=== PATIENT | female | born 1955 | race Caucasian/White ===

== ENCOUNTER 2016-03-30 10:39 | Day surgery (SDC) | payer OTHER ==
[2016-03-30 11:23] VITALS: BMI 40.6
--- NOTE | 2016-03-30 11:40 | PN ---
Progress Note (short form) - Note Progress Note: 60 yo female h/o paroxysmal atrial fibrillation s/p previous ablation x 2 and TANIKA-guided DCCV ([id number]), Hypertension/HCVD, Obesity s/p lap band surgery , cholelithiasis s/p lap cholecystectomy, Hyperlipidemia presented 02/2015 with recurrent palpitations in rapid afib. Sotalol increased, Eliquis started, presents for elective DCCV. Reports continued palpitations, compliance with NOACS, successful cardioversion to NSR after 120 J then 150 J synchronized shock. All: ASA->Hives Meds: Eliquis 5 bid, MgO 400 qd, Accupril 20 qd, Sotalol 80 tid PE-NAD VS: BP 194/103 HR 102 Lungs: Clear Heart: Irreg Abd: BS+,NT/ND Ext: No edema 12/29/2014 TANIKA: Normal LV size and fxn, mild MR, tr-mild TR, tr AR Tele: SR 60 EKG: NSR @ 65 1. Palpitations referable to paroxysmal atrial fibrillation s/p previous ablation x 2 and DCCV ([id number]) now in SR 2. Hypertension/HCVD, BP not at goal 3. Obesity s/p lap band surgery, cholelithiasis s/p lap cholecystectomy 4. Hyperlipidemia PLAN: 1. Hydralazine IV for BP control, continue Sotalol 80 q8 hrs, Accupril 20 qd, Eliquis 5 bid, Crestor 5 qd 2. D/c with f/u in office Monday04/05/2016 9:15 AM
[2016-03-30] MEDS ORDERED: hydrALAZINE HCL 20 MG/ML VIAL IVPUSH ONE (11:49)
[2016-03-30] MEDS ORDERED: PROPOFOL 20 ML ONE ×3 (12:01→12:02)
[2016-03-30 12:14] VITALS: TEMP 99
[2016-03-30] MEDS ORDERED: SILVER SULFADIAZINE 1% TOP CREAM 400 GM JAR TP SCH (12:15)
[2016-03-30 12:29] VITALS: PULSE 63
[2016-03-30 12:58] VITALS: BP 126/73
--- NOTE | 2016-03-31 16:59 | EKG ---
Test Reason : Blood Pressure : / mmHG Vent. Rate : 065 BPM Atrial Rate : 065 BPM P-R Int : 180 ms QRS Dur : 090 ms QT Int : 446 ms P-R-T Axes : 072 035 023 degrees QTc Int : 463 ms NORMAL SINUS RHYTHM WITH SINUS ARRHYTHMIA NORMAL ECG WHEN COMPARED WITH ECG OF 29-FEB-2016 09:16, SINUS RHYTHM HAS REPLACED ATRIAL FIBRILLATION VENT. RATE HAS DECREASED BY 42 BPM Confirmed by JONAS NICHOLAS, JULIETA ([id number]) on 03/31/2016 4:58:43 PM Referred By: Stevie Ryder Confirmed By:JULIETA MCDANIEL MD
== END 2016-03-30 13:25 | disposition home or self-care (01) ==
LOC: JASU-ENDO 10:39
PROVIDERS: ATTEND Internal Medicine Cardiovascular Disease
PROC: 5A2204Z Restoration of Cardiac Rhythm, Single (ICD-10-PCS; principal; 2016-03-30 11:00)
DX: I48.91 Unspecified atrial fibrillation (principal)
CPT/HCPCS: 92960; 93005; 93010

== ENCOUNTER 2017-02-05 07:27 | Emergency (ER) | payer OTHER ==
[2017-02-05 07:52] VITALS: TEMP 97.8; BMI 41.5
--- NOTE | 2017-02-05 08:10 | PDOC ---
History of Present Illness - General Chief Complaint: Palpitations Stated Complaint: RAPID HEART BEAT Time Seen by Provider: 02/05/17 08:09 - History of Present Illness Initial Comments: 02/05/17 08:10 hypertension, hypercholesterolemia, atrial fibrillation (not on Eliquis; stopped 06/2015) The patient denies chest pain, shortness of breath, headache and dizziness. Denies fever, chills, nausea, vomit, diarrhea and constipation. Denies dysuria, frequency, urgency and hematuria. 02/05/17 08:14 Past History - Past Medical History Allergies/Adverse Reactions: Allergies Allergy/AdvReac Type Severity Reaction Status Date / Time aspirin Allergy Intermediate Swelling Verified 02/05/17 07:49 Home Medications: Ambulatory Orders Quinapril HCl [Accupril -] 20 mg PO DAILY 07/01/12 Apixaban [Eliquis] 5 mg PO BID #60 tablet 02/29/16 Sotalol HCl [Betapace -] 80 mg PO TID 02/29/16 Magnesium Oxide [Magnesium] 400 mg PO DAILY 03/30/16 Anemia: No Asthma: No Cancer: No Cardiac Disorders: Yes (A FIB) CVA: No COPD: No CHF: No DVT: No Dementia: No Diabetes: No GI Disorders: No Disorders: No HTN: Yes Hypercholesterolemia: Yes Liver Disease: No Seizures: No Thyroid Disease: No - Surgical History Abdominal Surgery: Yes (LAP BAND) Appendectomy: No Cardiac Surgery: Yes (ABLATIONS x 2, CARDIOVERSION) Cholecystectomy: Yes Gastric Stapling: No GI Surgery: No Lung Surgery: No Neurologic Surgery: No Orthopedic Surgery: No - Immunization History Immunization Up to Date: Yes - Suicide/Smoking/Psychosocial Hx Smoking Status: No Smoking History: Never smoked Have you smoked in the past 12 months: No Number of Cigarettes Smoked Daily: 0 If you are a former smoker, when did you quit?: 25 YEARS AGO Information on smoking cessation initiated: No Hx Alcohol Use: No Drug/Substance Use Hx: No Substance Use Type: None Hx Substance Use Treatment: No Review of Systems - Review of Systems Comments:: 02/05/17 08:10 GENERAL/CONSTITUTIONAL: No fever or chills. No weakness. HEAD, EYES, EARS, NOSE AND THROAT: No change in vision. No ear pain or discharge. No sore throat. CARDIOVASCULAR: No chest pain or shortness of breath RESPIRATORY: No cough, wheezing, or hemoptysis. GASTROINTESTINAL: No nausea, vomiting, diarrhea or constipation. GENITOURINARY: No dysuria, frequency, or change in urination. MUSCULOSKELETAL: No joint or muscle swelling or pain. No neck or back pain. SKIN: No rash NEUROLOGIC: No headache, vertigo, loss of consciousness, or change in strength/ sensation. ENDOCRINE: No increased thirst. No abnormal weight change HEMATOLOGIC/LYMPHATIC: No anemia, easy bleeding, or history of blood clots. ALLERGIC/IMMUNOLOGIC: No hives or skin allergy. *Physical Exam - Vital Signs Last Vital Signs Temp Pulse Resp BP Pulse Ox 97.8 F 90 16 127/105 98 02/05/17 07:49 02/05/17 07:49 02/05/17 07:49 02/05/17 07:49 02/05/17 07:49 - Physical Exam Comments: 02/05/17 08:10 GENERAL: Awake, alert, and fully oriented, in no acute distress HEAD: No signs of trauma, normocephalic, atraumatic EYES: PERRLA, EOMI, sclera anicteric, conjunctiva clear ENT: Auricles normal inspection, hearing grossly normal, nares patent, oropharynx clear without exudates. Moist mucosa NECK: Normal ROM, supple, no lymphadenopathy, JVD, or masses LUNGS: No distress, speaks full sentences, clear to auscultation bilaterally HEART: Regular rate and rhythm, normal S1 and S2, no murmurs, rubs or gallops, peripheral pulses normal and equal bilaterally. ABDOMEN: Soft, nontender, normoactive bowel sounds. No guarding, no rebound. No masses EXTREMITIES: Normal inspection, Normal range of motion, no edema. No clubbing or cyanosis. NEUROLOGICAL: Cranial nerves II through XII grossly intact. Normal speech, normal gait, no focal sensorimotor deficits SKIN: Warm, Dry, normal turgor, no rashes or lesions noted. *DC/Admit/Observation/Transfer - Referrals Referrals: Bin Zaman MD [Primary Care Provider] - - Patient Instructions - Post Discharge Activity
[2017-02-05 09:10] LABS: BASOPHIL 0.9 % (0-2.0); EOSINOPHIL 2.1 % (0-4.5); MCHC 32.9 g/dl (32.0-36.0); MEAN CELL VOLUME 88.1 fl (80-96); MEAN PLT VOLUME 7.9 fl (7.5-11.1); NEUTROPHILS 63.3 % (42.8-82.8); PLATELET COUNT 306 K/MM3 (134-434); RDW 13.7 % (11.6-15.6); WHITE BLOOD COUNT 7.2 K/mm3 (4.0-10.0)
[2017-02-05 09:30] LABS: INR 1.17 (0.82-1.09); PROTHROMBIN TIME (PATIENT) 13.2 SEC (9.98-11.88)
[2017-02-05 09:33] LABS: ACTIVATED PTT 38.7 SECONDS (26.9-34.4)
[2017-02-05 09:34] LABS: ALBUMIN 3.5 g/dl (3.4-5.0); ANION GAP 7 (8-16); BILIRUBIN,TOTAL 0.3 mg/dL (0.2-1.0); CO2 26 mmol/L (21-32); CREATININE 0.7 mg/dL (0.55-1.02); GLUCOSE,RANDOM 92 mg/dL (74-106); MAGNESIUM 1.9 mg/dL (1.8-2.4); SGOT/AST 8 U/L (15-37); SGPT/ALT 16 U/L (12-78); TOT PROT 7.7 g/dl (6.4-8.2)
[2017-02-05 09:37] LABS: ALK PHOS 86 U/L (45-117); TROPONIN I < 0.02 ng/ml (0.00-0.05)
[2017-02-05 09:40] LABS: THYROID STIMULATING HORMONE 1.24 uIU/ml (0.358-3.74)
[2017-02-05 09:44] VITALS: BP 145/79; PULSE 87
[2017-02-05 09:44] LABS: URINE APPEARANCE SLCLOUDY; URINE BILIRUBIN NEGATIVE (NEGATIVE); URINE BLOOD 1+ (NEGATIVE); URINE COLOR STRAW; URINE GLUCOSE (UA) NEGATIVE (NEGATIVE); URINE KETONE NEGATIVE (NEGATIVE); URINE NITRITE NEGATIVE (NEGATIVE); URINE UROBILINOGEN NEGATIVE mg/dL (0.2-1.0)
[2017-02-05 09:48] LABS: URINE PROTEIN 1+ (NEGATIVE)
[2017-02-05 09:50] LABS: URINE BACTERIA RARE /hpf (NONE SEEN); URINE MUCUS RARE; URINE RBC 1 /hpf (0-3); URINE WBC 1 /hpf (3-5)
[2017-02-05 11:49] LABS: URINE LEUK ESTERASE Negative (NEGATIVE)
[2017-02-05 12:28] LABS: CPK 44 IU/L (26-192)
--- NOTE | 2017-02-05 12:46 | PDOC ---
History of Present Illness <Petr Stafford - Last Filed: 02/05/17 12:39> - General History Source: Patient Exam Limitations: No Limitations - History of Present Illness Initial Comments: 02/05/17 16:46 The patient is a 61 year old female, with a significant past medical history of hypertension, hypercholesterolemia, pAFon Eliquis s/p multiple cardioversions, who presents to the emergency department with intermittent palpitations that began approx. 6 days ago and lightheadedness that began this morning prior to arrival. The patient states that the palpitations are worse at night while lying down and have been interfering with her sleep. The patient reports she experienced the palpitations this morning when she walked into the ER, however, reports the palpitations have now subsided. The patient reports associated symptoms of nausea without vomiting and lightheadedness secondary to the palpitations. The patient states she has been compliant with her medications including sotolol and eliquis and reports her last benefit authorizer appointment with Dr. Ryder was approx. four months ago (next appointment scheduled for March). She denies recent chest pain or shortness of breath. She denies recent headache , blurry vision or double vision. She denies calf tenderness or swelling. She denies recent fevers or chills. She denies recent, vomit, diarrhea or constipation. She denies recent dysuria, frequency, urgency or hematuria. Allergies: Aspirin Past surgical history: Ablation x2. Cholecystectomy. Social history: Former smoker. Denies EtOH use and recreational drug use. Primary Care Physician: Dr. Bin Zaman Tandem Mill Operator: Dr. Stevie Ryder <Chava Dye - Last Filed: 02/05/17 16:46> - General Chief Complaint: Palpitations Stated Complaint: RAPID HEART BEAT Time Seen by Provider: 02/05/17 08:09 Past History - Past Medical History Anemia: No Asthma: No Cancer: No Cardiac Disorders: Yes (A FIB) CVA: No COPD: No CHF: No DVT: No Dementia: No Diabetes: No GI Disorders: No Disorders: No HTN: Yes Hypercholesterolemia: Yes Liver Disease: No Seizures: No Thyroid Disease: No - Surgical History Abdominal Surgery: Yes (LAP BAND) Appendectomy: No Cardiac Surgery: Yes (ABLATIONS x 2, CARDIOVERSION) Cholecystectomy: Yes Gastric Stapling: No GI Surgery: No Lung Surgery: No Neurologic Surgery: No Orthopedic Surgery: No - Immunization History Immunization Up to Date: Yes - Suicide/Smoking/Psychosocial Hx Smoking Status: No Smoking History: Never smoked Have you smoked in the past 12 months: No Number of Cigarettes Smoked Daily: 0 If you are a former smoker, when did you quit?: 25 YEARS AGO Information on smoking cessation initiated: No Hx Alcohol Use: No Drug/Substance Use Hx: No Substance Use Type: None Hx Substance Use Treatment: No <Petr Stafford - Last Filed: 02/05/17 12:39> <Chava Dye - Last Filed: 02/05/17 16:46> - Past Medical History Allergies/Adverse Reactions: Allergies Allergy/AdvReac Type Severity Reaction Status Date / Time aspirin Allergy Intermediate Swelling Verified 02/05/17 07:49 Home Medications: Ambulatory Orders Quinapril HCl [Accupril -] 40 mg PO DAILY 07/01/12 Apixaban [Eliquis] 5 mg PO BID #60 tablet 02/29/16 Sotalol HCl [Betapace -] 80 mg PO TID 02/29/16 Famotidine [Pepcid -] 20 mg PO DAILY 02/05/17 Review of Systems - Review of Systems Comments:: 02/05/17 16:46 GENERAL/CONSTITUTIONAL: No fever or chills. No weakness. HEAD, EYES, EARS, NOSE AND THROAT: No change in vision. No ear pain or discharge. No sore throat. CARDIOVASCULAR: +Palpitations. +Lightheadedness. No chest pain or shortness of breath. RESPIRATORY: No cough, wheezing, or hemoptysis. GASTROINTESTINAL: +Nausea. No vomiting, diarrhea or constipation. GENITOURINARY: No dysuria, frequency, or change in urination. MUSCULOSKELETAL: No joint or muscle swelling or pain. No neck or back pain. SKIN: No rash NEUROLOGIC:No headache, vertigo, loss of consciousness, or change in strength/ sensation. ENDOCRINE: No increased thirst. No abnormal weight change. HEMATOLOGIC/LYMPHATIC: No anemia, easy bleeding, or history of blood clots. ALLERGIC/IMMUNOLOGIC: No hives or skin allergy. <Chava Dye - Last Filed: 02/05/17 16:46> *Physical Exam - Vital Signs Last Vital Signs Temp Pulse Resp BP Pulse Ox 97.8 F 87 12 145/79 98 02/05/17 07:49 02/05/17 09:43 02/05/17 09:43 02/05/17 09:43 02/05/17 07:49 <Petr Stafford - Last Filed: 02/05/17 12:39> - Vital Signs Last Vital Signs Temp Pulse Resp BP Pulse Ox 97.8 F 87 12 145/79 98 02/05/17 07:49 02/05/17 09:43 02/05/17 09:43 02/05/17 09:43 02/05/17 07:49 - Physical Exam Comments: 02/05/17 16:46 GENERAL: Awake, alert, and fully oriented, in no acute distress HEAD: No signs of trauma EYES: PERRLA, EOMI, sclera anicteric, conjunctiva clear ENT: Auricles normal inspection, hearing grossly normal, nares patent, oropharynx clear without exudates. Moist mucosa NECK: Normal ROM, supple, no lymphadenopathy, JVD, or masses LUNGS: Breath sounds equal, clear to auscultation bilaterally. No wheezes, and no crackles HEART: +Irregularly irregular. Normal S1 and S2, no murmurs, rubs or gallops ABDOMEN: Soft, nontender, normoactive bowel sounds. No guarding, no rebound. No masses EXTREMITIES: Normal range of motion, no edema. No clubbing or cyanosis. No cords, erythema, or tenderness NEUROLOGICAL: Normal speech, cranial nerves intact, negative pronator drift, 5/ 5 strength in all 4 extremities, normal sensation to light touch in all 4 extremities, normal cerebellar exam, normal gait, normal reflexes and tone SKIN: Warm, Dry, normal turgor, no rashes or lesions noted. <Chava Dye - Last Filed: 02/05/17 16:46> Heart Score/ECG Review #1 02/05/17 12:40 Twelve-lead EKG was performed and reviewed by me. Atrial flutter, rate 100. Normal axis. No ST elevations. <Petr Stafford - Last Filed: 02/05/17 12:39> ED Treatment Course - LABORATORY CBC & Chemistry Diagram: 02/05/17 08:51 02/05/17 08:51 - ADDITIONAL ORDERS Additional order review: Laboratory Results 02/05/17 02/05/17 02/05/17 09:00 08:51 08:51 PT with INR 13.20 H INR 1.17 H PTT (Actin FS) 38.7 H Sodium Potassium Chloride Carbon Dioxide Anion Gap BUN Creatinine Creat Clearance w eGFR Random Glucose Calcium Magnesium Total Bilirubin AST ALT Alkaline Phosphatase Creatine Kinase Troponin I B-Natriuretic Peptide 1368.43 H Total Protein Albumin TSH 1.24 D Urine Color Straw Urine Appearance Slcloudy Urine pH 5.0 Ur Specific [place] 1.009 Urine Protein 1+ H Urine Glucose (UA) Negative Urine Ketones Negative Urine Blood 1+ H Urine Nitrite Negative Urine Bilirubin Negative Urine Urobilinogen Negative Ur Leukocyte Esterase Negative Urine WBC (Auto) 1 Urine RBC (Auto) 1 Ur Epithelial Cells Rare Urine Bacteria Rare Urine Mucus Rare 02/05/17 08:51 PT with INR INR PTT (Actin FS) Sodium 139 Potassium 4.1 Chloride 106 Carbon Dioxide 26 Anion Gap 7 L BUN 8 Creatinine 0.7 Creat Clearance w eGFR > 60 Random Glucose 92 Calcium 10.0 Magnesium 1.9 Total Bilirubin 0.3 AST 8 L D ALT 16 Alkaline Phosphatase 86 Creatine Kinase 44 Troponin I < 0.02 B-Natriuretic Peptide Total Protein 7.7 Albumin 3.5 TSH Urine Color Urine Appearance Urine pH Ur Specific [place] Urine Protein Urine Glucose (UA) Urine Ketones Urine Blood Urine Nitrite Urine Bilirubin Urine Urobilinogen Ur Leukocyte Esterase Urine WBC (Auto) Urine RBC (Auto) Ur Epithelial Cells Urine Bacteria Urine Mucus 02/05/17 08:51 RBC 4.92 MCV 88.1 MCHC 32.9 RDW 13.7 MPV 7.9 Neutrophils % 63.3 Lymphocytes % 27.1 D Monocytes % 6.6 Eosinophils % 2.1 Basophils % 0.9 - RADIOLOGY Radiology Studies Ordered: Category Date Time Status CHEST PA & LAT [RAD] Stat Radiology 02/05/17 08:39 Completed <Petr Stafford - Last Filed: 02/05/17 12:39> - LABORATORY CBC & Chemistry Diagram: 02/05/17 08:51 02/05/17 08:51 - ADDITIONAL ORDERS Additional order review: Laboratory Results 02/05/17 02/05/17 02/05/17 09:00 08:51 08:51 PT with INR 13.20 H INR 1.17 H PTT (Actin FS) 38.7 H Sodium Potassium Chloride Carbon Dioxide Anion Gap BUN Creatinine Creat Clearance w eGFR Random Glucose Calcium Magnesium Total Bilirubin AST ALT Alkaline Phosphatase Creatine Kinase Troponin I B-Natriuretic Peptide 1368.43 H Total Protein Albumin TSH 1.24 D Urine Color Straw Urine Appearance Slcloudy Urine pH 5.0 Ur Specific [place] 1.009 Urine Protein 1+ H Urine Glucose (UA) Negative Urine Ketones Negative Urine Blood 1+ H Urine Nitrite Negative Urine Bilirubin Negative Urine Urobilinogen Negative Ur Leukocyte Esterase Negative Urine WBC (Auto) 1 Urine RBC (Auto) 1 Ur Epithelial Cells Rare Urine Bacteria Rare Urine Mucus Rare 02/05/17 08:51 PT with INR INR PTT (Actin FS) Sodium 139 Potassium 4.1 Chloride 106 Carbon Dioxide 26 Anion Gap 7 L BUN 8 Creatinine 0.7 Creat Clearance w eGFR > 60 Random Glucose 92 Calcium 10.0 Magnesium 1.9 Total Bilirubin 0.3 AST 8 L D ALT 16 Alkaline Phosphatase 86 Creatine Kinase 44 Troponin I < 0.02 B-Natriuretic Peptide Total Protein 7.7 Albumin 3.5 TSH Urine Color Urine Appearance Urine pH Ur Specific [place] Urine Protein Urine Glucose (UA) Urine Ketones Urine Blood Urine Nitrite Urine Bilirubin Urine Urobilinogen Ur Leukocyte Esterase Urine WBC (Auto) Urine RBC (Auto) Ur Epithelial Cells Urine Bacteria Urine Mucus 02/05/17 08:51 RBC 4.92 MCV 88.1 MCHC 32.9 RDW 13.7 MPV 7.9 Neutrophils % 63.3 Lymphocytes % 27.1 D Monocytes % 6.6 Eosinophils % 2.1 Basophils % 0.9 <Chava Dye - Last Filed: 02/05/17 16:46> Medical Decision Making - Medical Decision Making 02/05/17 10:40 61 year old female with a significant past medical history of hypertension, hypercholesterolemia, atrial fibrillation on Eliquis presents with palpitations and an initial heart rate of 107. EKG with atrial flutter. Vitals otherwise unremarkable. On my exam the patient is irregularly irregular with a heart rate of 88, she is currently asymptomatic. Will obtain labs including troponin and BNP and check a chest x-ray to see if she is in decompensated heart failure due to flutter. Will discuss with the patient's benefit authorizer Dr. Ryder/Jacy and PMD Dr. Zaman Labs remarkable for BNP of 1400. Otherwise labs within normal limits. Chest x- ray is clear with no sign of pulmonary edema. The patient has remained asymptomatic since presentation. Dr. Louie has evaluated the patient in the emergency department and recommends that we discharge her as he will schedule her for cardioversion as an outpatient. Given the patient's intermittent lightheadedness and shortness of breath I also discussed the case with Dr. Zaman. Dr. Zaman came down to the emergency department and we evaluated the patient together. We offered the patient overnight observation given the majority of her symptoms are night however she declines and prefers to follow- up with Dr. Ryder is an outpatient. I gave the patient strict return precautions , if her shortness of breath or lightheadedness were to reoccur or if she felt her heart rate was too high, greater than 100, that she should return to the emergency department immediately. I discussed the physical exam findings, ancillary test results and final diagnoses with the patient. I answered all of the patient's questions. The patient was satisfied with the care received and felt comfortable with the discharge plan and treatment plan. The patient will call their primary care physician within 24 hours to arrange follow-up and will return to the Emergency Department with any new, persistent or worsening symptoms. <Petr Stafford - Last Filed: 02/05/17 12:39> - Medical Decision Making 02/05/17 16:[address] Artur Louie at 10:52 am. Page returned immediately. <Chava Dye - Last Filed: 02/05/17 16:46> *DC/Admit/Observation/Transfer - Discharge Dispostion Admit: No - Attestations Physician Attestion: 02/05/17 12:46 I, Dr. Petr Stafford MD, attest that this document has been prepared under my direction and personally reviewed by me in its entirety. I further attest, that it accurately reflects all work, treatment, procedures and medical decision -making performed by me. <Petr Stafford - Last Filed: 02/05/17 12:39> - Attestations Scribe Attestion: 02/05/17 16:06 Documentation prepared by Chava Dye, acting as medical aide for Petr Stafford MD. <Chava Dye - Last Filed: 02/05/17 16:46> Diagnosis at time of Disposition: Palpitations, Atrial fibrillation - Discharge Dispostion Disposition: HOME Condition at time of disposition: Stable - Referrals Referrals: Bin Zaman MD [Primary Care Provider] - - Patient Instructions Printed Discharge Instructions: DI for Palpitations Additional Instructions: Call Dr. Ryder tomorrow to schedule your cardioversion. Follow-up with Dr. Zaman within 2-3 days. Return to the emergency department if you have any new , worsening or concerning symptoms. Continue to take all your medications as prescribed. - Post Discharge Activity
--- NOTE | 2017-02-06 14:21 | EKG ---
Test Reason : Blood Pressure : / mmHG Vent. Rate : 100 BPM Atrial Rate : 271 BPM P-R Int : 000 ms QRS Dur : 092 ms QT Int : 346 ms P-R-T Axes : 000 042 008 degrees QTc Int : 446 ms ATRIAL FLUTTER WITH VARIABLE A-V BLOCK NONSPECIFIC ST AND T WAVE ABNORMALITY ABNORMAL ECG WHEN COMPARED WITH ECG OF 30-MAR-2016 12:03, ATRIAL FLUTTER HAS REPLACED SINUS RHYTHM VENT. RATE HAS INCREASED BY 35 BPM Confirmed by LIZETH BRADY MD ([id number]) on 02/06/2017 2:21:27 PM Referred By: Confirmed By:LIZETH BRADY MD
== END 2017-02-05 12:58 | disposition home or self-care (01) ==
LOC: JER 07:27
DX: I48.0 Paroxysmal atrial fibrillation (principal); Z79.01 Long term (current) use of anticoagulants; I10 Essential (primary) hypertension; E78.00 Pure hypercholesterolemia, unspecified
CPT/HCPCS: 36415; 71020-TC; 80053; 81003; 81015; 82550; 83735; 83880; 84443; 84484; 85025; 85610; 85730; 93005; 93010; 99284-25

== ENCOUNTER 2017-02-13 09:44 | Day surgery (SDC) | payer OTHER ==
[2017-02-13 11:15] VITALS: BMI 41.5
[2017-02-13 12:16] VITALS: TEMP 98.2
--- NOTE | 2017-02-13 12:40 | EKG ---
Test Reason : Blood Pressure : / mmHG Vent. Rate : 056 BPM Atrial Rate : 056 BPM P-R Int : 172 ms QRS Dur : 088 ms QT Int : 468 ms P-R-T Axes : 073 035 038 degrees QTc Int : 451 ms SINUS BRADYCARDIA WITH SINUS ARRHYTHMIA OTHERWISE NORMAL ECG WHEN COMPARED WITH ECG OF 05-FEB-2017 07:41, SINUS RHYTHM HAS REPLACED ATRIAL FLUTTER VENT. RATE HAS DECREASED BY 44 BPM Confirmed by CAITLYN NICHOLAS, LIZETH ([id number]) on 02/13/2017 12:40:02 PM Referred By: Stevie Ryder Confirmed By:LIZETH BRADY MD
[2017-02-13 12:44] VITALS: BP 122/70; PULSE 63
== END 2017-02-13 14:14 | disposition home or self-care (01) ==
LOC: JASU-ENDO 09:44 → JOR 09:44 → JASU-ENDO 14:14
PROVIDERS: ATTEND Internal Medicine Cardiovascular Disease
PROC: 5A2204Z Restoration of Cardiac Rhythm, Single (ICD-10-PCS; principal; 2017-02-13 10:30)
DX: I48.91 Unspecified atrial fibrillation (principal)
CPT/HCPCS: 92960; 93005; 93010

== ENCOUNTER 2018-12-04 12:50 | Emergency (ER) | payer OTHER ==
[2018-12-04 13:02] VITALS: BMI 41.6
[2018-12-04] MEDS ORDERED: ACETAMINOPHEN 1000 MG/100 ML VIAL (NON FORMULARY) IVPB ONE (13:58)
[2018-12-04] MEDS ORDERED: SODIUM CHLORIDE 1,000 ML IV STA (13:58)
[2018-12-04 14:32] LABS: BASO % 0.5 % (0-2.0); EOS % 0.6 % (0-4.5); HEMATOCRIT 41.9 % (32.4-45.2); HEMOGLOBIN 13.5 GM/dL (10.7-15.3); LYMPH % 15.4 % (8-40); MCH 28.4 pg (25.7-33.7); MCHC 32.3 g/dl (32.0-36.0); MEAN CELL VOLUME 87.9 fl (80-96); MEAN PLT VOLUME 7.5 fl (7.5-11.1); MONO % 6.5 % (3.8-10.2); PLATELET COUNT 360 K/MM3 (134-434); RBC 4.76 M/mm3 (3.60-5.2); RDW 14.5 % (11.6-15.6); WHITE BLOOD COUNT 11.4 K/mm3 (4.0-10.0)
[2018-12-04] MEDS ORDERED: ACETAMINOPHEN INJECTION 100 ML IVPB ONE (14:35)
--- NOTE | 2018-12-04 14:39 | PDOC ---
History of Present Illness - General Chief Complaint: Hematuria Stated Complaint: HEMATURIA Time Seen by Provider: 12/04/18 13:11 History Source: Patient Exam Limitations: No Limitations Past History - Travel Traveled outside of the country in the last 30 days: No Close contact w/someone who was outside of country & ill: No - Past Medical History Allergies/Adverse Reactions: Allergies Allergy/AdvReac Type Severity Reaction Status Date / Time aspirin Allergy Intermediate Swelling Verified 12/04/18 12:56 Home Medications: Ambulatory Orders Quinapril HCl [Accupril -] 40 mg PO DAILY 07/01/12 Apixaban [Eliquis] 5 mg PO BID #60 tablet 02/29/16 Sotalol HCl [Betapace -] 80 mg PO TID 02/29/16 Famotidine [Pepcid -] 20 mg PO BID 02/05/17 Cholecalciferol (Vitamin D3) [Vitamin D3 -] 2,000 unit PO DAILY 12/04/18 Sulfamethoxazole/Trimethoprim [Bactrim Ds -] 1 tab PO BID #14 tablet 12/04/18 Anemia: No Asthma: No Cancer: No Cardiac Disorders: Yes (A FIB) CVA: No COPD: No CHF: No DVT: No Dementia: No Diabetes: No GI Disorders: No Disorders: No HTN: Yes Hypercholesterolemia: Yes Liver Disease: No Seizures: No Thyroid Disease: No - Surgical History Abdominal Surgery: Yes (LAP BAND) Appendectomy: No Cardiac Surgery: Yes (ABLATIONS x 2, CARDIOVERSION) Cholecystectomy: Yes Gastric Stapling: No GI Surgery: No Lung Surgery: No Neurologic Surgery: No Orthopedic Surgery: No - Immunization History Immunization Up to Date: Yes - Suicide/Smoking/Psychosocial Hx Smoking Status: No Smoking History: Unknown if ever smoked Have you smoked in the past 12 months: No Number of Cigarettes Smoked Daily: 0 If you are a former smoker, when did you quit?: 25 YEARS AGO Hx Alcohol Use: No Drug/Substance Use Hx: No Substance Use Type: None Hx Substance Use Treatment: No Review of Systems - Review of Systems Able to Perform ROS?: Yes Comments:: 12/04/18 14:34 CONSTITUTIONAL: Absent: fever, chills, diaphoresis, generalized weakness, malaise, loss of appetite HEENT: Absent: rhinorrhea, nasal congestion, throat pain, throat swelling, difficulty swallowing, mouth swelling, ear pain, eye pain, visual Changes CARDIOVASCULAR: Absent: chest pain, loss of consciousness, palpitations, irregular heart rate, peripheral edema RESPIRATORY: Absent: cough, shortness of breath, dyspnea with exertion, orthopnea, wheezing, stridor, hemoptysis GASTROINTESTINAL: Absent: abdominal pain, abdominal distension, nausea, vomiting, diarrhea, constipation, melena, hematochezia GENITOURINARY: Present: hematuria, R flank pain, dysuria Absent: frequency, urgency, hesitancy , genital pain MUSCULOSKELETAL: Absent: myalgia, arthralgia, joint swelling SKIN: Absent: rash, itching, pallor HEMATOLOGIC/IMMUNOLOGIC: Absent: easy bleeding, easy bruising, lymphadenopathy, frequent infections ENDOCRINE: Absent: unexplained weight gain, unexplained weight loss, heat intolerance, cold intolerance NEUROLOGIC: Absent: headache, focal weakness or paresthesias, dizziness, unsteady gait, seizure, mental status changes, bladder or bowel incontinence PSYCHIATRIC: Absent: anxiety, depression, suicidal or homicidal ideation, hallucinations. Is the patient limited Maori proficient: No *Physical Exam - Vital Signs Last Vital Signs Temp Pulse Resp BP Pulse Ox 98.1 F 73 18 149/85 99 12/04/18 13:00 12/04/18 13:00 12/04/18 13:00 12/04/18 13:00 12/04/18 13:00 - Physical Exam Comments: 12/04/18 14:35 GENERAL: Well developed, well nourished. Awake and alert. No acute distress. HEENT: Normocephalic, atraumatic. PERRLA, EOMI. No conjunctival pallor. Sclera are non- icteric. Moist mucous membranes. Oropharynx is clear. NECK: Supple. Full ROM. No JVD. Carotid pulses 2+ and symmetric, without bruits. No thyromegaly. No lymphadenopathy. CARDIOVASCULAR: Regular rate and rhythm. No murmurs, rubs, or gallops. Distal pulses are 2+ and symmetric. PULMONARY: No evidence of respiratory distress. Lungs clear to auscultation bilaterally. No wheezing, rales or rhonchi. ABDOMINAL: Soft. Non-tender. Non-distended. No rebound or guarding. No organomegaly. Normoactive bowel sounds. MUSCULOSKELETAL Normal range of motion at all joints. No bony deformities or tenderness. (+) R CVA tenderness. EXTREMITIES: No cyanosis. No clubbing. No edema. No calf tenderness. SKIN: Warm and dry. Normal capillary refill. No rashes. No jaundice. NEUROLOGICAL: Alert, awake, appropriate. Cranial nerves 2-12 intact. No deficits to light touch and temperature in face, upper extremities and lower extremities. No motor deficits in the in face, upper extremities and lower extremities. Normoreflexic in the upper and lower extremities. Normal speech. Toes are down- going bilaterally. Gait is normal without ataxia. PSYCHIATRIC: Cooperative. Good eye contact. Appropriate mood and affect. ED Treatment Course - LABORATORY CBC & Chemistry Diagram: 12/04/18 14:00 12/04/18 14:00 - RADIOLOGY Radiology Studies Ordered: Category Date Time Status SPIRAL- RENAL-STONE CT [CT] Stat CT Scan 12/04/18 13:57 Ordered Medical Decision Making - Medical Decision Making 12/04/18 14:35 The patient is a 63 y/o F with PMH of Afib (on eliquis), HTN, presents to the ER today for 3 days of hematuria and back pain starting yesterday. The patient states she has been recently taking antibiotics for a tooth infection (augmentin , then clindamycin). She notes she stopped the Clindamycin about three days ago and then the hematuria started. She also admits to associated dysuria. She is having full voids. Her last bowel movement was this mornoing. Denies fever, chills, n/v/d, abdominal pain, and shortness of breath. She states she has an appointment with urology (Dr. Devine) on . A/P: Hematuria On exam pt with R CVA tenderness Urine appears pink DDx: UTI, cystitis, pyelo, nephrolithaisis, abx side effect? Labs, Urine, spiral CT ordered Re-evaluate 12/04/18 17:11 Urine shows 2+ leukocytes, 3+ blood; likely UTI CT Impression per radiology: No nephrolithasis; inflammatory changes of central mesentery and a degree of diverticulitis must be considered Clinically; pt with no abdominal pain on exam, a diagnosis of diverticulitis is not consistent with pt symptoms Will treat as early UTI/Pyelo; pt with follow up on DC home with strict return precautions I discussed the physical exam findings, ancillary test results and final diagnoses with the patient. I answered all of the patient's questions. The patient was satisfied with the care received and felt comfortable with the discharge plan and treatment plan. The Patient agrees to follow up with the primary care physician/specialist within 24-72 hours. Return precautions were given. *DC/Admit/Observation/Transfer Diagnosis at time of Disposition: Cystitis - Discharge Dispostion Disposition: HOME Condition at time of disposition: Stable Decision to Admit order: No - Referrals Referrals: Bin Zaman MD [Primary Care Provider] - Michele Devine MD., [Staff Physician] - - Patient Instructions Printed Discharge Instructions: DI for Acute Cystitis Additional Instructions: You were evaluated for the blood in your urine today Your urine test shows an infection. Take the antibiotics as prescribed and keep your appointment with urology for Take the pyridum with food as needed for pain with urination Drink plenty of fluids Return to the ER for abdominal pain, vomiting, changes in your bowel movements, fever or if you have any changes in your symptoms - Post Discharge Activity Forms/Work/School Notes: Back to Work
[2018-12-04 14:46] LABS: INR 1.24 (0.83-1.09); PROTHROMBIN TIME (PATIENT) 14.7 SEC (9.7-13.0)
[2018-12-04 14:50] LABS: ALBUMIN 3.8 g/dl (3.4-5.0); BILIRUBIN,TOTAL 0.3 mg/dL (0.2-1); BLOOD UREA NITROGEN 10.5 mg/dL (7-18); CALCIUM 10.6 mg/dL (8.5-10.1); CREATININE 0.6 mg/dL (0.55-1.3); POTASSIUM 4.3 mmol/L (3.5-5.1); TOT PROT 8.2 g/dl (6.4-8.2)
--- NOTE | 2018-12-04 16:15 | PDOC ---
*Physical Exam - Vital Signs Last Vital Signs Temp Pulse Resp BP Pulse Ox 98.1 F 73 18 149/85 99 12/04/18 13:00 12/04/18 13:00 12/04/18 13:00 12/04/18 13:00 12/04/18 13:00 ED Treatment Course - LABORATORY CBC & Chemistry Diagram: 12/04/18 14:00 12/04/18 14:00 - ADDITIONAL ORDERS Additional order review: Laboratory Results 12/04/18 12/04/18 14:00 14:00 PT with INR 14.70 H INR 1.24 H Sodium 139 Potassium 4.3 Chloride 100 Carbon Dioxide 31 Anion Gap 8 BUN 10.5 Creatinine 0.6 Est GFR (CKD-EPI)AfAm 110.86 Est GFR (CKD-EPI)NonAf 95.65 Random Glucose 90 Calcium 10.6 H Total Bilirubin 0.3 AST 13 L ALT 16 Alkaline Phosphatase 81 Total Protein 8.2 Albumin 3.8 12/04/18 14:00 RBC 4.76 MCV 87.9 MCHC 32.3 RDW 14.5 MPV 7.5 Neutrophils % 77.0 D Lymphocytes % 15.4 D Monocytes % 6.5 Eosinophils % 0.6 Basophils % 0.5 - Medications Given in the ED: ED Medications Discontinued Medications Generic Name Dose Route Start Last Admin Trade Name Freq PRN Reason Stop Dose Admin Acetaminophen 1,000 mg 12/04/18 13:58 12/04/18 14:50 Ofirmev Injection - IVPB 12/04/18 13:59 1,000 mg ONCE ONE Administration Sodium Chloride 1,000 mls @ 1,000 mls/hr 12/04/18 13:58 12/04/18 14:30 Normal Saline - IV 12/04/18 14:57 1,000 mls/hr ASDIR STA Administration Medical Decision Making - Medical Decision Making 12/04/18 16:13 Patient seen and evaluated with the nurse practitioner. I agree with the overall evaluation, assessment, and management with the following summary of visit: 63y/o F h/o afib on eliquis p/w dysuria and back pain and hematuria. discomfort on exam with otherwise benign abdomen, +cvat presentation could be c/w renal colic, cystitis/pyelo, hematuria 2/2 a/c labs, ua ctap reassess *DC/Admit/Observation/Transfer Diagnosis at time of Disposition: Cystitis - Discharge Dispostion Disposition: HOME Condition at time of disposition: Stable - Prescriptions Prescriptions: Phenazopyridine HCl [Pyridium -] 100 mg PO TID #6 tablet Sulfamethoxazole/Trimethoprim [Bactrim Ds -] 1 tab PO BID #14 tablet - Referrals Referrals: Bin Zaman MD [Primary Care Provider] - Michele Devine MD., MD [Staff Physician] - - Patient Instructions Printed Discharge Instructions: DI for Acute Cystitis Additional Instructions: You were evaluated for the blood in your urine today Your urine test shows an infection. Take the antibiotics as prescribed and keep your appointment with urology for Take the pyridum with food as needed for pain with urination Drink plenty of fluids Return to the ER for abdominal pain, vomiting, changes in your bowel movements, fever or if you have any changes in your symptoms - Post Discharge Activity Forms/Work/School Notes: Back to Work Discharge - Discharge Information Problems reviewed: Yes Clinical Impression/Diagnosis: Cystitis Condition: Stable Disposition: HOME - Additional Discharge Information Prescriptions: Phenazopyridine HCl [Pyridium -] 100 mg PO TID #6 tablet Sulfamethoxazole/Trimethoprim [Bactrim Ds -] 1 tab PO BID #14 tablet - Follow up/Referral Referrals: Bin Zaman MD [Primary Care Provider] - Michele Devine MD., [Staff Physician] - - Patient Discharge Instructions Patient Printed Discharge Instructions: DI for Acute Cystitis Additional Instructions: You were evaluated for the blood in your urine today Your urine test shows an infection. Take the antibiotics as prescribed and keep your appointment with urology for Take the pyridum with food as needed for pain with urination Drink plenty of fluids Return to the ER for abdominal pain, vomiting, changes in your bowel movements, fever or if you have any changes in your symptoms - Post Discharge Activity Work/Back to School Note: Back to Work
[2018-12-04 16:51] LABS: PH,URINE 6.5 (5.0-8.0); URINE APPEARANCE Slightly Cloudy; URINE BILIRUBIN Negative (NEGATIVE); URINE COLOR Light yellow; URINE GLUCOSE (UA) Negative (NEGATIVE); URINE KETONE Negative (NEGATIVE); URINE LEUK ESTERASE 2+ (NEGATIVE); URINE NITRITE Negative (NEGATIVE); URINE PROTEIN 2+ (NEGATIVE); URINE UROBILINOGEN 0.2 mg/dL (0.2-1.0)
[2018-12-04 17:49] VITALS: BP 155/66; PULSE 66; TEMP 97.8
[2018-12-04 18:25] LABS: EPI CELLS 1 /HPF (0-5/HPF); HYALINE CASTS 3 /lpf (0-8); URINE BACTERIA FEW /hpf (NEGATIVE); URINE RBC 5 /hpf (0-4); URINE WBC 50-60 /hpf (0-5)
[2018-12-04 18:26] LABS: URINE CRYSTALS NONE SEEN /hpf
== END 2018-12-04 17:45 | disposition home or self-care (01) ==
LOC: SUPCPDRO 12:50 → JER 12:50
PROC: 3E0337Z Introduction of Electrolytic and Water Balance Substance into Peripheral Vein, Percutaneous Approach (ICD-10-PCS; principal; 2018-12-04)
PROC: 3E033NZ Introduction of Analgesics, Hypnotics, Sedatives into Peripheral Vein, Percutaneous Approach (ICD-10-PCS; 2018-12-04)
DX: N30.00 Acute cystitis without hematuria (principal); I10 Essential (primary) hypertension; I48.91 Unspecified atrial fibrillation; Z79.01 Long term (current) use of anticoagulants; E78.00 Pure hypercholesterolemia, unspecified; Z88.6 Allergy status to analgesic agent
CPT/HCPCS: 36415; 74176-TC; 80053; 81003; 85025; 85610; 87086; 99283-25; J0131; J7030

== ENCOUNTER 2022-03-21 04:50 | Day surgery (SDC) | payer OTHER ==
[2022-03-17 16:16] VITALS: BMI 41.1
[2022-03-21 14:31] VITALS: TEMP 97.9
[2022-03-21 15:47] VITALS: BP 134/84; PULSE 65; RESP 18
== END 2022-03-21 15:53 | disposition home or self-care (01) ==
LOC: JASU-ENDO 04:50
PROVIDERS: ATTEND Internal Medicine Cardiovascular Disease
PROC: 5A2204Z Restoration of Cardiac Rhythm, Single (ICD-10-PCS; principal; 2022-03-21 12:00)
DX: I48.91 Unspecified atrial fibrillation (principal)
CPT/HCPCS: 92960; 93005; 93010

== ENCOUNTER 2022-03-30 16:36 | Inpatient (IN) | payer OTHER ==
[2022-03-30 17:46] VITALS: BMI 38.9
[2022-03-30] MEDS ORDERED: FAMOTIDINE 20 MG/50 ML IVPB 20 MG/50 ML MG IVPB ONE (20:28)
[2022-03-30] MEDS ORDERED: morphine CARPU-JECT 2 MG/1 ML DISP.SYRIN IVPUSH ONE (20:29)
[2022-03-30 20:41] LABS: BASO % 0.6 % (0-2.0); EOS % 1.3 % (0-4.5); LYMPH % 21.5 % (8-40); MCHC 32.5 g/dl (32.0-36.0); MEAN CELL VOLUME 86.1 fl (80-96); MEAN PLT VOLUME 6.9 fl (7.5-11.1); MONO % 9.5 % (3.8-10.2); NEUT % 67.1 % (42.8-82.8); PLATELET COUNT 348 10^3/uL (134-434); RBC 5.34 M/mm3 (3.60-5.2); WHITE BLOOD COUNT 8.9 K/mm3 (4.0-10.0)
[2022-03-30] MEDS ORDERED: SODIUM CHLORIDE 0.9% 500 ML INFUS.BAG IV ONE (20:59)
[2022-03-30] MEDS ORDERED: ONDANSETRON 4 MG/2 ML VIAL IVPUSH ONE (21:06)
[2022-03-30 21:08] LABS: CHLORIDE 103 mmol/L (98-107); SODIUM 141 mmol/L (136-145)
[2022-03-30 21:11] LABS: ANION GAP 9 MMOL/L (8-16); BLOOD UREA NITROGEN 12.3 mg/dL (7-18); CO2 29 mmol/L (21-32); GLUCOSE,RANDOM 95 mg/dL (74-106); LIPASE 93 U/L (73-393)
[2022-03-30 21:14] LABS: CREATININE 0.8 mg/dL (0.55-1.3); SGOT/AST 17 U/L (15-37); SGPT/ALT 16 U/L (13-61)
[2022-03-30 21:15] LABS: BILIRUBIN,TOTAL 0.6 mg/dL (0.2-1); TOT PROT 8.4 g/dl (6.4-8.2)
[2022-03-30 21:17] LABS: ALK PHOS 82 U/L (45-117)
[2022-03-31] MEDS ORDERED: SODIUM CHLORIDE 1,000 ML IV SCH ×2 (00:45→16:45)
[2022-03-31 01:31] LABS: EPI CELLS 3 /uL (0-25.1); HYALINE CASTS 1 /uL (0-3.1); URINE APPEARANCE CLEAR; URINE BACTERIA 11 /uL (0-1359); URINE BILIRUBIN NEGATIVE (NEGATIVE); URINE COLOR YELLOW; URINE GLUCOSE (UA) NEGATIVE (NEGATIVE); URINE KETONE NEGATIVE (NEGATIVE); URINE LEUK ESTERASE NEGATIVE (NEGATIVE); URINE NITRITE NEGATIVE (NEGATIVE); URINE PROTEIN TRACE (NEGATIVE); URINE RBC 38 /uL (0-23.9); URINE UROBILINOGEN 0.2 mg/dL (0.2-1.0); URINE WBC 3 /uL (0-25.8)
[2022-03-31] MEDS: SOTALOL HCL 80 MG TABLET (FP) PO SCH ×2 (07:59→22:19)
[2022-03-31 08:53] LABS: CHLORIDE 103 mmol/L (98-107); SODIUM 140 mmol/L (136-145)
[2022-03-31 08:56] LABS: ANION GAP 7 MMOL/L (8-16); BLOOD UREA NITROGEN 11.2 mg/dL (7-18); CALCIUM 9.8 mg/dL (8.5-10.1); CO2 30 mmol/L (21-32); GLUCOSE,RANDOM 87 mg/dL (74-106)
[2022-03-31 09:00] LABS: CREATININE 0.7 mg/dL (0.55-1.3)
[2022-03-31] MEDS: METOCLOPRAMIDE HCL INJECTION 10 MG/2 ML VIAL IVPUSH PRN ×2 (09:55→22:23)
[2022-03-31] MEDS ORDERED: METOCLOPRAMIDE HCL INJECTION 10 MG/2 ML VIAL ONE (09:57)
[2022-03-31] MEDS ORDERED: LISINOPRIL 5 MG TABLET PO SCH (10:00)
[2022-03-31] MEDS: APIXABAN 5 MG TABLET PO SCH ×2 (11:44→22:18)
[2022-03-31] MEDS: CHOLECALCIFEROL (VIT D3) 1,000 UNIT (25 MCG) TABLET PO SCH (11:45)
[2022-03-31] MEDS: FAMOTIDINE 20 MG TABLET PO SCH ×2 (11:45→22:18)
[2022-03-31] MEDS ORDERED: FAMOTIDINE 20 MG TABLET ONE (11:48)
[2022-03-31] MEDS ORDERED: APIXABAN 5 MG TABLET ONE (11:48)
[2022-03-31] MEDS ORDERED: CHOLECALCIFEROL (VIT D3) 1,000 UNIT (25 MCG) TABLET ONE (11:49)
[2022-03-31] MEDS ORDERED: ONDANSETRON 4 MG/2 ML VIAL IVPB PRN (16:42)
[2022-03-31] MEDS ORDERED: ACETAMINOPHEN 650 MG/20.3 ML ORAL SOLUTION (CUPS) PO PRN (16:44)
[2022-03-31] MEDS ORDERED: LISINOPRIL 10 MG TABLET PO ONE (18:15)
[2022-04-01] MEDS: SOTALOL HCL 80 MG TABLET (FP) PO SCH ×2 (07:13→13:13)
[2022-04-01] MEDS: FAMOTIDINE 20 MG TABLET PO SCH (10:18)
[2022-04-01] MEDS: APIXABAN 5 MG TABLET PO SCH (10:18)
[2022-04-01] MEDS: CHOLECALCIFEROL (VIT D3) 1,000 UNIT (25 MCG) TABLET PO SCH (10:21)
[2022-04-01 11:23] VITALS: RESP 22
[2022-04-01 16:03] VITALS: BP 157/68; PULSE 55; TEMP 97.5
== END 2022-04-01 18:46 | disposition home or self-care (01) | DRG 328 ==
LOC: JER 16:36 → JERBED 03-31 00:26 → J4W 03-31 17:18 → OBSVTOIN 04-01 12:12
PROVIDERS: ADMIT Specialist; ATTEND Specialist
PROC: 0DP Gastrointestinal System, Removal (ICD-10-PCS; principal; 2022-04-01)
DX: K95.09 Other complications of gastric band procedure (principal); I10 Essential (primary) hypertension; K22.89 Other specified disease of esophagus; I48.91 Unspecified atrial fibrillation; K21.9 Gastro-esophageal reflux disease without esophagitis; Z98.84 Bariatric surgery status
CPT/HCPCS: 0241U-QW; 36415; 74177-TC; 80048; 80053; 81003; 83690; 84484; 85025; 87086; 93005; 93010; 93306-TC; 99285-25; G0378; Q9967

== ENCOUNTER 2022-10-17 09:19 | Emergency (ER) | payer OTHER ==
[2022-10-17 10:10] VITALS: BP 104/86; PULSE 69; RESP 18; TEMP 98.6; BMI 41.5
[2022-10-17 10:44] LABS: BASO % 0.6 % (0-2.0); EOS % 1.3 % (0-4.5); HEMATOCRIT 41.2 % (32.4-45.2); HEMOGLOBIN 14.1 GM/dL (10.7-15.3); MCH 29.5 pg (25.7-33.7); MCHC 34.1 g/dl (32.0-36.0); MEAN CELL VOLUME 86.5 fl (80-96); MEAN PLT VOLUME 7.1 fl (7.5-11.1); NEUT % 71.1 % (42.8-82.8); PLATELET COUNT 350 10^3/uL (134-434); RBC 4.77 M/mm3 (3.60-5.2); RDW 13.6 % (11.6-15.6); WHITE BLOOD COUNT 8.2 K/mm3 (4.0-10.0)
[2022-10-17 10:51] LABS: INR 1.3 (0.83-1.09)
[2022-10-17] MEDS ORDERED: FAMOTIDINE 20 MG/50 ML IVPB 20 MG in PREMIX 50 IVPB ONE (11:00)
[2022-10-17] MEDS ORDERED: MAG HYDROX/AL HYDROX/SIMETH -MYLANTA- ORAL SUSPENSION PO ONE (11:00)
[2022-10-17 11:02] LABS: CHLORIDE 106 mmol/L (98-107); SODIUM 135 mmol/L (136-145)
[2022-10-17 11:04] LABS: BLOOD UREA NITROGEN 13.1 mg/dL (7-18); CALCIUM 10.2 mg/dL (8.5-10.1)
[2022-10-17 11:05] LABS: ALBUMIN 2.9 g/dl (3.4-5.0); CO2 29 mmol/L (21-32); GLUCOSE,RANDOM 95 mg/dL (74-106); MAGNESIUM 2.1 mg/dL (1.8-2.4)
[2022-10-17 11:08] LABS: CREATININE 0.7 mg/dL (0.55-1.3)
[2022-10-17 11:09] LABS: BILIRUBIN,TOTAL 0.2 mg/dL (0.2-1); TOT PROT 8.3 g/dl (6.4-8.2)
[2022-10-17 11:10] LABS: ALK PHOS 98 U/L (45-117)
[2022-10-17 11:15] LABS: ANION GAP 0 MMOL/L (8-16); POTASSIUM 9.8 mmol/L (3.5-5.1); SGOT/AST 116 U/L (15-37); SGPT/ALT 23 U/L (13-61)
[2022-10-17] MEDS ORDERED: FAMOTIDINE 20 MG/50 ML IVPB 20 MG/50 ML MG IVPB ONE (11:44)
[2022-10-17] MEDS ORDERED: MAG HYDROX/AL HYDROX/SIMETH 30 ML UNIT-DOSE CUP ONE (11:44)
[2022-10-17 11:59] LABS: CHLORIDE 106 mmol/L (98-107); SODIUM 138 mmol/L (136-145)
[2022-10-17 12:01] LABS: ALBUMIN 3.2 g/dl (3.4-5.0); BLOOD UREA NITROGEN 12.2 mg/dL (7-18); CO2 28 mmol/L (21-32); GLUCOSE,RANDOM 102 mg/dL (74-106)
[2022-10-17 12:04] LABS: CREATININE 0.7 mg/dL (0.55-1.3); SGOT/AST 52 U/L (15-37); SGPT/ALT 23 U/L (13-61)
[2022-10-17 12:06] LABS: BILIRUBIN,TOTAL 0.1 mg/dL (0.2-1); TOT PROT 7.8 g/dl (6.4-8.2)
[2022-10-17 12:08] LABS: ALK PHOS 99 U/L (45-117)
[2022-10-17 12:34] LABS: ANION GAP 3 MMOL/L (8-16); POTASSIUM 6.5 mmol/L (3.5-5.1)
== END 2022-10-17 14:20 | disposition home or self-care (01) ==
LOC: JER 09:19
PROC: 3E033GC Introduction of Other Therapeutic Substance into Peripheral Vein, Percutaneous Approach (ICD-10-PCS; principal; 2022-10-17)
DX: R07.2 Precordial pain (principal); R06.02 Shortness of breath; R06.00 Dyspnea, unspecified
CPT/HCPCS: 36415; 71045-TC-FY; 80053; 83735; 84132; 84484; 85025; 85610; 93005; 93010; 99285-25

== ENCOUNTER 2024-02-11 12:02 | Emergency (ER) | payer OTHER ==
[2024-02-11 12:08] VITALS: BP 189/94; PULSE 79; RESP 18; TEMP 98.6; BMI 42.5
== END 2024-02-11 13:08 | disposition home or self-care (01) ==
LOC: JERFT 12:02
DX: J02.0 Streptococcal pharyngitis (principal); R50.9 Fever, unspecified
CPT/HCPCS: 87651; 99283-25